=== PATIENT | male | born 1960 | race Caucasian/White ===

== ENCOUNTER 2018-07-21 13:14 | Emergency (ER) | payer OTHER ==
--- NOTE | 2018-07-21 13:41 | EDPHY ---
H & P Time Seen by Provider: 07/21/18 13:25 HPI/ROS: HPI: This is a 58-year-old male who presents with Chief Complaint: Left buttock bump Location: Left buttock Quality: Abscess Duration: 7 days Signs and Symptoms: No bleeding, no radiation, no numbness, no weakness, no tingling, no incontinence, no decreased range of motion, + swelling, + pain, no fever Timing: Worsening Severity: Mild Context: Patient reports that he has a history of ingrown hairs and presents with 7 day history of left buttock abscess that has gradually worsened. He reports that it is red and tender to touch. He reports that he has pain with sitting on his left buttock. No history of diabetes mellitus or MRSA. Patient is immunocompetent. Tetanus is up-to-date. Modifying Factors: None Comment: ROS: A comprehensive 10 system review of systems is otherwise negative aside from elements mentioned in the history of present illness. MEDICAL/SURGICAL/SOCIAL HISTORY: Medical history: Generally healthy. Does not take any regular medications. Surgical history: Denies Social history: Employed, nonsmoker, denies drug use. CONSTITUTIONAL: Well-developed, well-nourished adult male walking around the room. awake and alert, no obvious distress HEENT: Atraumatic and normocephalic. NECK: supple EXTREMITIES: 2/2 pulses, strength 5/5, DIP/PIP/MCP flexion/extension intact with good light touch sensation. no deformities, no clubbing, no cyanosis or edema. NEUROLOGICAL: no focal neuro deficits. GCS 15. Light touch sensation intact. SKIN: Warm and dry, left buttock middle portion shows 4 inch annular raised fluctuant abscess with pointing and moderate surrounding erythema. no rash. Good capillary refill. Source: Patient Exam Limitations: No limitations Allergies/Adverse Reactions: tetanus immune globulin Allergy (Verified 07/21/18 13:27) Home Medications: Medication Instructions Recorded Cephalexin [Keflex (*)] 500 mg PO TID #21 cap 07/21/18 Sulfamethox/Tmp 800/160 mg 1 tab PO BID #14 tab 07/21/18 [Bactrim Ds] Medical Decision Making Procedures: Procedure: Abscess drainage. The patient's abscess was located on the left buttock. I obtained verbal consent from the patient to drain the abscess who was informed about the possibility of bleeding and pain. The abscess was incised with 18 gauge scalpel and a 5 mL amount of purulent drainage was expressed. I irrigated the wound and placed some iodoform packing. The patient tolerated the procedure well. The procedure was performed by myself. ED Course/Re-evaluation: Vital signs reviewed and stable upon arrival. Local anesthesia provided and I&D performed. Expression of 5 mL purulent discharge Copiously irrigated and iodoform packing placed Clean sterile dressing applied. Given a prescription for Keflex and Bactrim. Verbal and written wound care instructions provided. This patient was seen under the supervision of my secondary supervising physician. I evaluated care for this patient independently. Discussed this patient with Dr. Oliveros who did not see the patient. Differential Diagnosis: Differential diagnosis includes but is not limited to cellulitis, abscess, MRSA infection Departure - Departure Disposition: Home, Routine, Self-Care Clinical Impression: Folliculitis, Abscess of buttock, left Condition: Good Instructions: Abscess (ED), Abscess Incision and Drainage (DC) Additional Instructions: Keep the dressing/packing dry and in place for 48 hours. After 48 hours, you may remove the dressing/packing; wash the site daily with mild soap and water; then pat dry. Keep covered with clean sterile dressing until fully healed. Take Tylenol 650 mg every 4 hours and/or Ibuprofen 600 mg every 8 hours with food as needed for pain. Take antibiotics as directed. Do not skip a dose. Sit on a donut as needed for discomfort. Referrals: PCP Not In,Dictionary [Medical Doctor] - As per Instructions Prescriptions: Cephalexin [Keflex (*)] 500 mg PO TID #21 cap Sulfamethox/Tmp 800/160 mg [Bactrim Ds] 1 tab PO BID #14 tab
[2018-07-21 13:58] VITALS: BP 150/68
== END 2018-07-21 13:50 | disposition home or self-care (01) ==
PROC: 0H98XZZ Drainage of Buttock Skin, External Approach (ICD-10-PCS; principal; 2018-07-21)
DX: L02.31 Cutaneous abscess of buttock (principal); L73.9 Follicular disorder, unspecified